=== PATIENT | male | born 1955 | race Caucasian/White ===

== ENCOUNTER → 2017-07-09 | Outpatient (CLI) | payer BC ==
--- NOTE | 2017-07-10 11:38 | CT ---
EXAMINATION TYPE: CT urogram wo/w con DATE OF EXAM: 07/09/2017 COMPARISON: NONE INDICATION: Patient complains of microscopic hematuria found during routine testing. DLP: 1690.3 mGycm, Automated exposure control for dose reduction was used. CONTRAST: 100 mL of Isovue 300. Study performed without Oral Contrast TECHNIQUE: Axial images were obtained from above the diaphragm to the pubic rami in the axial plane a t 5 mm thick sections. Reconstructed images are reviewed on the computer in the coronal plane. FINDINGS: Limited CT sections are obtained the lung bases. The lung bases are clear. CT ABDOMEN: Liver: There is a 1.5 cm cyst measuring 17 Hounsfield units in the tip of the right lobe of liver adj acent to the ligamentum teres. Spleen: Normal Pancreas: Normal Adrenal glands: The adrenal glands are normal. Gallbladder: Normal Kidneys: No masses are evident. No hydronephrosis is present. No cysts are present. There are 2 x 0.2 cm calcifications within the inferior pole left kidney. Additional 0.3 cm calcification is in the mid left kidney on the coronal plane images precontrast. Three-D reconstructed images through the kidneys with delayed images were obtained. Kidneys appear un remarkable. Sequential images. Abnormal renal collecting system renal calyces and infundibulum and re nal pelves and normal ureters follow a normal caliber course and contour to the urinary bladder. Aorta: Vascular calcification is within the aorta. Inferior vena cava: Normal. CT PELVIS: Loops of bowel within the abdomen and pelvis are normal. Studies without oral contrast limiting b owel evaluation. Urinary Bladder: appears unremarkable. GENITOURINARY: Prostate appears unremarkable. No free fluid is within the pelvis. Appendix: No suspicious inflammatory changes or dilated tubular structures are evident. IMPRESSIONS: 1. Left side nonobstructing renal stones discussed above.
== END | disposition home or self-care (01) ==
LOC: RADCTMAIN 16:00
PROVIDERS: ATTEND Urology
DX: N20.0 Calculus of kidney (principal)
CPT/HCPCS: 74178; 74400; Q9967